=== PATIENT | female | born 1955 | race Two or more races ===

== ENCOUNTER 2020-06-30 11:27 | Emergency (ER) | payer OTHER, MEDICAID ==
[~2020-06-30] VITALS: Ht 157.5 cm; Wt 60.3 kg
[2020-06-30 11:54] LABS: Basophils # (auto) 0.1 10 ^3/uL (0-0.2); Basophils % (auto) 0.7 % (0.0-2.0); Eosinophils # (auto) 0 10 ^3/uL (0-0.8); Eosinophils % (auto) 0.5 % (0.0-7.0); Hematocrit 41.2 % (36.0-46.0); Hemoglobin 14.3 g/dL (12.2-16.2); Lymphocytes % (auto) 23.6 % (10.0-50.0); Mean Corpuscular Hemoglobin 29.7 pg (28.0-32.0); Mean Corpuscular Hgb Conc. 34.7 g/dL (32.0-36.0); Mean Corpuscular Volume 85.5 fL (80.0-100.0); Monocytes # (auto) 0.4 10 ^3/uL (0-1.3); Monocytes % (auto) 4.9 % (0.0-12.0); Neutrophils % (auto) 70.3 % (37.0-80.0); Nucleated Red Blood Cells % 0.1 %; Red Blood Cells 4.82 10^6/uL (4.0-5.20); Red Cell Distribution Width 13.5 % (11.8-14.3); White Blood Cell 8.6 10^3/uL (4.4-10.8)
[2020-06-30 12:10] LABS: Anion Gap 7 (5-15); Blood Urea Nitrogen 10 mg/dL (7-18); Calcium 9.2 mg/dL (8.5-10.1); Carbon Dioxide 24 mmol/L (21-32); Chloride 109 mmol/L (98-107); Glucose 97 mg/dL (74-106); Potassium 4.1 mmol/L (3.5-5.1); Sodium 140 mmol/L (136-145)
[2020-06-30 12:15] LABS: Alanine Aminotransferase 31 U/L (13-56); Alkaline Phosphatase 71 U/L (45-117); Aspartate Aminotransferase 19 U/L (15-37); BUN/Creatinine Ratio 11.4; Bilirubin, Total 0.5 mg/dL (0.2-1.0); GFR African American 83 mL/min; GFR Non-African American 68 mL/min; Total Protein 7.4 g/dL (6.4-8.2)
[2020-06-30 14:38] LABS: Urine Bacteria FEW /hpf (None Seen); Urine Blood Negative /uL (Negative); Urine Specific Gravity 1.004 (1.001-1.035); Urine WBC <1 /hpf (0 - 5)
[2020-06-30 15:03] VITALS: BP 142/76
== END 2020-06-30 15:12 | disposition home or self-care (01) ==
LOC: ER 11:27
DX: R53.1 Weakness (principal); E78.5 Hyperlipidemia, unspecified; I10 Essential (primary) hypertension; I25.2 Old myocardial infarction; R51.9 Headache, unspecified; Z88.0 Allergy status to penicillin
CPT/HCPCS: 36415; 70450; 80053; 81001; 84484; 85025; 93005